=== PATIENT | female | born 1960 | race Caucasian/White ===

== ENCOUNTER 2017-05-08 17:08 | Emergency (ER) | payer BC ==
[2017-05-08] MEDS ORDERED: Albuterol/Ipratropium 3.0-0.5 MG/3 ML Neb Soln NEB ONE (18:48)
--- NOTE | 2017-05-08 20:17 | EDM.PDOC ---
ED HPI GENERAL MEDICAL PROBLEM - General Chief Complaint: Respiratory Problem Stated Complaint: UNK Time Seen by Provider: 05/08/17 18:48 Source of Information: Reports: Patient History Limitations: Reports: No Limitations - History of Present Illness INITIAL COMMENTS - FREE TEXT/NARRATIVE: HISTORY AND PHYSICAL: History of present illness: [Patient comes to the emergency room complaining of cough wheezing and difficulty urinating. She's had a cough for the past 1-1/2 weeks but over the last 24 hours has developed wheezing and dry hacking cough. She's noticed fever and chills on and off for the past week. She's also had some burning with urination and urinary frequency. She has a history of a nonhealing abdominal wound for which she is following at [facility]. Other than this pain she's had an increase in suprapubic pressure as well as some low back pain. She denies earaches sore throat and runny nose. Chest feels congested and she is having difficulty expectorating everything in her chest. She is coughing a lot and is unable to sleep due to her coughing. His appetite has been diminished but she's not had any nausea or vomiting. No diarrhea or constipation. No swelling to her feet or lower legs. She does not have a local PCP at this time but she has plans to establish with her 's physician. 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 Past medical history: As per history of present illness and as reviewed below otherwise noncontributory. Surgical history: As per history of present illness and as reviewed below otherwise noncontributory. Social history: No reported history of drug or alcohol abuse. Family history: As per history of present illness and as reviewed below otherwise noncontributory. Physical exam: HEENT: Atraumatic, normocephalic. Oral mucous membranes are pink and moist. No tonsillar swelling erythema or exudate. Nares are patent and clear. Neck supple lymphadenopathy, Lungs: Wheezing is appreciated throughout all lung samuel. She is in no respiratory distress. No rales or crackles. Clear to auscultation, breath sounds equal bilaterally, chest nontender. Heart: S1S2, regular, negative for clicks, rubs, or JVD. Abdomen: Bandage extends over her mid abdomen area, mild suprapubic tenderness. No CVA tenderness. Abdomen is otherwise soft. Pelvis: Stable nontender. Genitourinary: Deferred. Rectal: Deferred. Extremities: Atraumatic, no cyanosis or edema to feet and lower legs. Neurovascular unremarkable. Neuro: Awake, alert, oriented. Motor and sensory unremarkable throughout. Exam nonfocal. Diagnostics: [Chest x-ray, UA, urine culture] Therapeutics: [DuoNeb] Impression: [Bronchitis UTI] Plan: [Chest x-ray is clear and lung sounds improved significantly following DuoNeb treatment. She is prescribed albuterol inhaler. UA shows positive nitrites and 4 + bacteria. She is encouraged to follow-up with a local PCP later this week. Rx' s are written for Phenergan with codeine cough syrup #180 mL take 5 mL every 8 hours as needed for cough. 0 refills, albuterol inhaler #1 sig 1-2 puffs every 4 -6 hours when necessary shortness of breath and wheezing 0 RF's, Macrobid #14 sig one by mouth twice a day 0 refills. Strict return precautions are reviewed w / patient. ] Definitive disposition and diagnosis as appropriate pending reevaluation and review of above. 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 ED EXAM, GENERAL - Physical Exam Exam: See Below Course - Vital Signs Last Recorded V/S: Last Vital Signs Temp 98.3 F 05/08/17 20:28 Pulse 85 05/08/17 20:28 Resp 18 05/08/17 20:28 BP 145/88 H 05/08/17 20:28 Pulse Ox 97 05/08/17 20:28 - Orders/Labs/Meds Orders: Active Orders 24 hr Category Date Time Status EKG Documentation Completion [RC] STAT Care 05/08/17 19:20 Active RT Aerosol Therapy [RC] ASDIRECTED Care 05/08/17 18:48 Active Chest 2V [CR] Stat Exams 05/08/17 18:47 Taken CULTURE URINE [RM] Stat Lab 05/08/17 19:09 Received Labs: Laboratory Tests 05/08/17 Range/Units 19:09 Urine Color YELLOW Urine Appearance SLT CLOUDY Urine pH 6.0 (5.0-8.0) Ur Specific Fenton 1.025 (1.001-1.035) Urine Protein NEGATIVE (NEGATIVE) mg/dL Urine Glucose (UA) NEGATIVE (NEGATIVE) mg/dL Urine Ketones NEGATIVE (NEGATIVE) mg/dL Urine Occult Blood TRACE-INTACT (NEGATIVE) Urine Nitrite POSITIVE H (NEGATIVE) Urine Bilirubin NEGATIVE (NEGATIVE) Urine Urobilinogen 1.0 (<2.0) EU/dL Ur Leukocyte Esterase NEGATIVE (NEGATIVE) Urine RBC 1-2 (0-2/HPF) Urine WBC 3-5 (0-5/HPF) Ur Epithelial Cells OCCASIONAL (NONE-FEW) Urine Bacteria 4+ H (NEGATIVE) Meds: Medications Discontinued Medications Generic Name Dose Route Start Last Admin Trade Name Freq PRN Reason Stop Dose Admin Albuterol/Ipratropium 3 ml 05/08/17 18:48 05/08/17 19:16 Duoneb 3.0-0.5 Mg/3 Ml NEB 05/08/17 18:49 3 ml ONETIME ONE Administration Departure - Departure Time of Disposition: 20:15 Disposition: Home, Self-Care 01 Condition: Good Clinical Impression: Bronchitis, UTI (urinary tract infection) - Discharge Information Instructions: Urinary Tract Infection, Adult, [id number], Acute Bronchitis, [id number] Referrals: PCP,None [Primary Care Provider] - Forms: ED Department Discharge Additional Instructions: The following information is given to patients seen in the emergency department who are being discharged to home. This information is to outline your options for follow-up care. We provide all patients seen in our emergency department with a follow-up referral. The need for follow-up, as well as the timing and circumstances, are variable depending upon the specifics of your emergency department visit. If you don't have a primary care physician on staff, we will provide you with a referral. We always advise you to contact your personal physician following an emergency department visit to inform them of the circumstance of the visit and for follow-up with them and/or the need for any referrals to a consulting specialist. The emergency department will also refer you to a specialist when appropriate. This referral assures that you have the opportunity for follow-up care with a specialist. All of these measure are taken in an effort to provide you with optimal care, which includes your follow-up. Under all circumstances we always encourage you to contact your private physician who remains a resource for coordinating your care. When calling for follow-up care, please make the office aware that this follow-up is from your recent emergency room visit. If for any reason you are refused follow-up, please contact the [facility] emergency department at and asked to speak to the emergency department charge nurse. [facility] [address] [place] [address] Follow-up with your primary care provider at the clinic above in 48-72 hours. Using inhaler 1-2 puffs every 4-6 hours as needed for shortness of breath and wheezing. You are given a prescription for daytime cough syrup to help you sleep. During the day use Robitussin or Delsym cough syrup. Push fluids. Return to ER as needed as discussed. - My Orders Last 24 Hours: My Active Orders 05/08/17 18:47 Chest 2V [CR] Stat 05/08/17 18:48 RT Aerosol Therapy [RC] ASDIRECTED 05/08/17 19:09 CULTURE URINE [RM] Stat 05/08/17 19:20 EKG Documentation Completion [RC] STAT - Assessment/Plan Last 24 Hours: My Active Orders 05/08/17 18:47 Chest 2V [CR] Stat 05/08/17 18:48 RT Aerosol Therapy [RC] ASDIRECTED 05/08/17 19:09 CULTURE URINE [RM] Stat 05/08/17 19:20 EKG Documentation Completion [RC] STAT
--- NOTE | 2017-05-09 09:54 | CR ---
EXAM DATE: 05/08/17 PATIENT'S AGE: 57 Patient: ABA BERGERON Facility: [place], [place] Site . Site : [id number] Study: XRay Chest [id number] 7:51:25 PM Ordering Physician: Doctor Logan Final Report: INDICATION: Chest pain, shortness of breath TECHNIQUE: Chest 2 views. COMPARISON: None FINDINGS: Cardiovascular and mediastinum: Heart size and vasculature are normal in caliber and appearance. Mediastinum is within normal limits. Lungs and pleural spaces: Lungs are clear. No sign of infiltrate or mass. No sign of pleural effusion. No pneumothorax. Bones and soft tissues: No significant findings. Surgical maria luisa and suture material seen in the upper abdomen. IMPRESSION: No sign of acute disease. Dictated by Arlet Jenkins MD @ May 08 2017 7:58PM (Electronic Signature) Report Signed by Proxy. JOSE
== END 2017-05-08 20:28 | disposition home or self-care (01) ==
LOC: MW.ED 17:08
DX: N39.0 Urinary tract infection, site not specified (principal); J40 Bronchitis, not specified as acute or chronic
CPT/HCPCS: 71020; 71020-26; 81001; 87086; 87088; 87186; 93005; 94640; 99283; 99285-25